=== PATIENT | female | born 1960 | race Caucasian/White ===

== ENCOUNTER 2019-05-16 11:35 | Outpatient (CLI) | payer SELFPAY ==
[2019-05-16 13:06] LABS: Absolute Basophil Count 0.01 k/cumm (0.0-0.2); Absolute Eosinophil Count 0.03 k/cumm (0.0-0.7); Absolute Lymphocyte Count 1.85 k/cumm (1.2-3.4); Absolute Monocyte Count 0.37 k/cumm (0.11-0.7); Absolute Neutrophil Count 1.81 k/cumm (1.2-6.7); Basophils % 0.2; Eosinophils % 0.7; HCT 39.5 % (36.0-46.0); HGB 13.2 g/dL (12.0-15.5); Lymphocytes % 45.5; Mean Corp. HGB Concentration 33.4 g/dL (32.0-36.0); Mean Corpuscular Hemoglobin 30.5 pg (27.0-33.0); Mean Corpuscular Volume 91.2 fL (80-95); Mean Platelet Volume 10.7 fL (8.0-11.0); Monocytes % 9.1; Neutrophils % 44.5; Platelet Count 241 x1000/uL (130-400); RBC 4.33 m/cumm (4.00-5.20); RBC Distribution Width 12.6 % (11.7-14.6); White Blood Cell Count 4.07 k/cumm (4.4-10.8)
[2019-05-16 13:24] LABS: ALT 18 U/L (14-59); AST 21 U/L (15-37); Albumin 4.2 g/dL (3.4-5.0); Alkaline Phosphatase 61 U/L (46-116); Anion Gap 8.8 mmol/L (3-11); BUN 15 mg/dL (7-18); Bilirubin, Total 1.6 mg/dL (0.2-1.0); CO2 28.2 mmol/L (21.0-32.0); CREATININE 0.81 mg/dL (0.55-1.02); Calcium 9.5 mg/dL (8.5-10.1); Chloride 104 mmol/L (98-107); Glucose 88 mg/dL (74-106); Potassium 4.1 mmol/L (3.5-5.1); Sodium 141 mmol/L (136-145); Total Protein 7.4 g/dL (6.4-8.2)
== END 2019-05-16 11:55 ==
PROVIDERS: PCP Internal Medicine; Visit Provider Internal Medicine
DX: I10 Essential (primary) hypertension (principal); R50.9 Fever, unspecified; Z01.30 Encounter for examination of blood pressure without abnormal findings
CPT/HCPCS: 36415; 80053; 84443; 85025

== ENCOUNTER 2020-02-23 20:46 | Outpatient (REF) | payer SELFPAY ==
[2020-02-23 21:00] LABS: HCT 39.9 % (36.0-46.0); HGB 13.3 g/dL (11.2-15.7); MCH 30.9 pg (27.0-33.0); MCHC 33.3 % (32.0-36.0); MCV 92.6 fL (80-95); MPV 10.6 fL (8.0-11.0); Platelet Count 258 10^3/uL (130-400); RBC 4.31 10^6/uL (3.93-5.22); RDW 12.4 % (11.7-14.6); RDW-SD 42.8 fL; WBC 4.64 10^3/uL (4.4-10.8)
[2020-02-23 21:05] LABS: CREATININE 0.87 mg/dL (0.55-1.02); Potassium 4.1 mmol/L (3.5-5.1)
== END 2020-02-23 21:06 ==
LOC: LBN 20:46
PROVIDERS: PCP Nurse Practitioner; Visit Provider Nurse Practitioner
DX: I10 Essential (primary) hypertension (principal); D72.819 Decreased white blood cell count, unspecified; B00.9 Herpesviral infection, unspecified; R51 Headache
CPT/HCPCS: 85027; 82565; 84132

== ENCOUNTER 2022-04-18 01:39 | Outpatient (CLI) | payer SELFPAY ==
--- OUTSIDE RECORDS SUMMARY | 2022-04-18 01:40 | XMS_ITS | Clinical Summary ---
:1960 Author Organization [facility] [place] [address] Care Team Providers Name Role Phone Polina Phillips Primary Care Provider Allergies No known active allergies Medications Medication Sig Dispensed Refills Start Date End Date Status lisinopril-hydrochloro Take 1 tablet by 0 Active thiazide (ZESTORETIC) mouth daily. 10-12.5 mg per tablet Immunizations Name Administration Dates Next Due Td, adult 09/12/2003 Social History Tobacco Use Types Packs/Day Years Used Date Former Smoker Sex Assigned at Date Recorded Not on file Plan of Treatment Health Maintenance Due Date Last Done Comments Covid-19 Vaccine (#1) 1960 HIV screen 1980 Hepatitis C Screening 1980 Tdap adult 1981 HPV test 1992 PAP Smear 1992 Breast Cancer Share Decision Needed 2002 Colonoscopy 2007 Breast Cancer screening 2012 Zoster vaccine (1 of 2) 2012 Tetanus vaccine 09/11/2013 09/12/2003 Advance Directive 2017 Influenza (Flu) vaccine (1 of 1 - Influenza standard 02/20/2022 series) Care Teams Snagger Relationship Specialty Start Date End Date Polina Phillips PA PCP - General 01/06/13
--- OUTSIDE RECORDS SUMMARY | 2022-04-18 01:41 | XMS_ITS | Encounter Summary ---
:1960 Author Organization [facility] Address [address] [place] [address] Care Team Providers Name Role Phone Unavailable Primary Care Provider Unavailable Encounter Details Date Type Department Care Team Description 05/26/2000 Results Only [facility] - Camelia Jones MD [address] [place] [address] Social History Tobacco Use Types Packs/Day Years Used Date Never Assessed Sex Assigned at Date Recorded Not on file documented as of this encounter Plan of Treatment Not on filedocumented as of this encounter Procedures Procedure Name Priority Date/Time Associated Diagnosis Comme nts CYTOPATHOLOGY Routine 05/26/2000 0:00 EST Result s for this procedure are i n the results section . documented in this encounter Results CYTOPATHOLOGY (05/26/2000 0:00 EST) Pathology Report: CYTOPATHOLOGY REPORT [facility] Reports generated via electronic interface contain maurisio ginal data; however they are lacking the format of the original re port. Caution should be taken when reading/interpreting unfo rmatted reports. Name: ? MART BOTLON ? Accession #: ? [id number] : ? 1960 (Age: 39) ??F ?Collect Date: ? 10/1999 Location: ? [facility] ? Receive Date : ? 06/01/2000 Provider: ?ANDRÉS TORRES MD Copy to: ? Specimen/Source: ?ThinPrep Pap Test, Source Not Provided Last Menstrual Period: ? 05/18/00 ? SPECIMEN ADEQUACY ? Satisfactory for evaluation. GENERAL CATEGORIZATION ? Within Normal Limits ? Document reviewed and electronically signed by: ? Lacey Souza, ??SCT(ASCP) ? Report Date: ??06/02/2000 07:33 End of Report Specimen Performing Organization Address City/State/ZIP Code Phon e Number [facility] [address] [place] [address] SERVICES [facility] [address] [place] [address] documented in this encounter Visit Diagnoses Not on filedocumented in this encounter
--- OUTSIDE RECORDS SUMMARY | 2022-04-18 01:41 | XMS_ITS | Encounter Summary ---
:1960 Author Organization [facility] Address [address] [place] [address] Care Team Providers Name Role Phone Unknown, Provider Primary Care Provider Encounter Details Date Type Department Care Team Description 02/04/2016 Results Only [facility]- Lizzie Epperson NP [phone] [place] [phone] Social History Tobacco Use Types Packs/Day Years Used Date Never Assessed Sex Assigned at Date Recorded Not on file documented as of this encounter Plan of Treatment Not on filedocumented as of this encounter Procedures Procedure Name Priority Date/Time Associated Diagnosis Comme nts PAP TEST- RESULT Routine 02/04/2016 0:00 EDT Resu lts for this ONLY procedure are i n the results section. documented in this encounter Results PAP TEST- RESULT ONLY (02/04/2016 0:00 EDT) Pathology Report: CYTOPATHOLOGY REPORT [facility] Reports generated via electronic interface contain maurisio ginal data; SERVICES however they are lacking the format of the original re port. Caution should be taken when reading/interpreting unfo rmatted reports. Name: ? PIETROFAHAD MAHONEY MTMELISSA ? Accession #: ? [id number] ? : ? 1960 (Age: 55) ??F ?Collect Date: ? 02/04/2016 ? Location: ? [facility] ? Receive Date: ? 02/06/20 16 ? Provider: LIZZIE PERAZA MARKET BASKET MAKER Copy to: ? Final Report SPECIMEN ADEQUACY ? Satisfactory for Evaluation - transformation zone component present GENERAL CATEGORIZATION ? Negative for Intraepithelial Lesion or Malignan cy ?? Menstrual/ Status: ??Post Menopausal Hormonal/Contraceptive status: None Other: Grain Elevator Worker Clinical/Treatment Hx - None Specimen/Source: ??Pap Test, Cervix/Endocervix, ThinPr ep Imaging System with manual evaluation Document reviewed and electronically signed by: ? Lisa Little, [place](ASCP) ? Report ??Date: 02/11/2016 13:46 HPV with Pap Test ? Date Ordered: ? 02/11/2016 ? Status: ?? Signed Out ?Date Complete: ? 02/12/2016 ? By: ??Sy stem Interface ? Date Reported: ? 02/12/2016 ? Interpretation RESULT: Negative for HPV. No E6 or E7 mRNA is detected from HPV types 16,18,31,3 3,35, 39,45,51,52,56,58,59,66, and 68 by high school science tutor media rosalinda amplification. Comments Document reviewed and electronically signed by: ? System Interface ? Report date: 02/12/2016 By the signature above, the attending physician certif ies that he/she has personally conducted a gross and/or microscopic examin ation of the described specimens and rendered or confirmed the above diagnosi s. End of Report Specimen Performing Organization Address City/State/ZIP Code Phon e Number [facility] [address] [place] [address] SERVICES documented in this encounter Visit Diagnoses Not on filedocumented in this encounter Care Teams Community Coordinator For High [employer] Relationship Specialty Start Date End Date Unknown, Provider, PCP - General 01/04/13 documented as of this encounter
--- OUTSIDE RECORDS SUMMARY | 2022-04-18 01:41 | XMS_ITS | Encounter Summary ---
:1960 Author Organization [facility] Address [address] [place] [address] Care Team Providers Name Role Phone Unavailable Primary Care Provider Unavailable Encounter Details Date Type Department Care Team Description 08/10/2006 Results Only [facility] - Cherise Stewart, conversion CNM [id number] [place] [id number] (Wo rk) Social History Tobacco Use Types Packs/Day Years Used Date Never Assessed Sex Assigned at Date Recorded Not on file documented as of this encounter Plan of Treatment Not on filedocumented as of this encounter Procedures Procedure Name Priority Date/Time Associated Comments Diagnosis HPV DETECTION, HIGH Routine 08/10/2006 13:30 Resu lts for this RISK TYPES EST procedure are i n the results section. CYTOPATHOLOGY Routine 08/10/2006 0:00 Results for this EST procedure are i n the results section. documented in this encounter Results HUMAN PAPILLOMA VIRUS DNA TEST (08/10/2006 13:30 EST) Specimen Description Cervix, ThinPrep [facility] vial Result Negative for HPV [facility] types 16, 18, 31, 33, 35, 39, 45, 51, 52, 56, 58, 59, and 68. Report Status Final [facility] [id number] Specimen Performing Organization Address City/State/ZIP Code Phon e Number [facility] [address] [place] [address] SERVICES [facility] [address] [place] [address] CYTOPATHOLOGY (08/10/2006 0:00 EST) Pathology Report: CYTOPATHOLOGY REPORT [facility] Reports generated via electronic interface contain maurisio ginal data; however they are lacking the format of the original re port. Caution should be taken when reading/interpreting unfo rmatted reports. Name: ? MART BOLTON ? Accession #: ? [id number] : ? 1960 (Age: 46) ??F ?Collect Date: ? 07/23 Location: ? [facility] ? Receive Date : ? 08/13/2006 Provider: ?CHERISE MURO [facility] Copy to: ? Specimen/Source: ? ThinPrep Pap Test, Cervix/Endocervix, processed on [employer] ThinPrep Imaging System, with manual evaluation Last Menstrual Period: ? Other: ? HPVDX - HPV testing requested regardless of diag nosis on current ThinPrep Pap test. Additional clinical information: Previous pap WNL ? SPECIMEN ADEQUACY ? Satisfactory for Evaluation - transformation zone component present GENERAL CATEGORIZATION ? Negative for Intraepithelial Lesion or Malignan cy ? Document reviewed and electronically signed by: ? KATEY Arrington(ASCP) ? Report Date: ??08/17/2006 08:37 End of Report Specimen Performing Organization Address City/State/ZIP Code Phon e Number [facility] [address] [place] [address] SERVICES [facility] [address] [place] [address] documented in this encounter Visit Diagnoses Not on filedocumented in this encounter
--- OUTSIDE RECORDS SUMMARY | 2022-04-18 01:41 | XMS_ITS | Encounter Summary ---
:1960 Author Organization [facility] Address [address] [place] [address] Care Team Providers Name Role Phone Unknown, Provider Primary Care Provider Encounter Details Date Type Department Care Team Description 01/03/2013 Results Only [facility] Kristin Phillips am, [facility] Services - [address] [address] Social History Tobacco Use Types Packs/Day Years Used Date Never Assessed Sex Assigned at Date Recorded Not on file documented as of this encounter Plan of Treatment Not on filedocumented as of this encounter Procedures Procedure Name Priority Date/Time Associated Diagnosis Comme nts PAP TEST- RESULT Routine 01/03/2013 0:00 EDT Resu lts for this ONLY procedure are i n the results section. documented in this encounter Results PAP TEST- RESULT ONLY (01/03/2013 0:00 EDT) Pathology Report: CYTOPATHOLOGY REPORT [facility] Reports generated via electronic interface contain maurisio ginal data; however they are lacking the format of the original re port. Caution should be taken when reading/interpreting unfo rmatted reports. Name: ? FAHAD BOLTON ? Accession #: ? [id number] ? : ? 1960 (Age: 52) ??F ?Collect Da te: ? 01/03/2013 ? Location: ? [facility] ? Receive Date: ? 013 ? Provider: GLORIA NEUMANN Copy to: ? Final Report SPECIMEN ADEQUACY ? Satisfactory for Evaluation - transformation zone component present GENERAL CATEGORIZATION ? Negative for Intraepithelial Lesion or Malignan cy ?? Menstrual/ Status: ??Post Menopausal Specimen/Source: ??Pap Test, Cervix/Endocervix, ThinPr ep Imaging System with manual evaluation Document reviewed and electronically signed by: ? Jak Juarez, CT(ASCP) ? Report ??Date: 01/07/2013 13:32 HPV with Pap Test ? Date Ordered: ? 01/07/2013 ? Status: ?? Signed Out ?Date Complete: ? 01/11/2013 ? By: ??S ystem Interface ? Date Reported: ? 01/11/2013 ? Interpretation RESULT: Negative for HPV. No E6 or E7 mRNA is detected from HPV types 16,18,31,3 3,35, 39,45,51,52,56,58,59,66, and 68 by paint dipper media rosalinda amplification. Comments Document reviewed and electronically signed by: ? System Interface ? Report date: 01/11/2013 By the signature above, the attending physician certif ies that he/she has personally conducted a gross and/or microscopic examin ation of the described specimens and rendered or confirmed the above diagnosi s. End of Report Specimen Performing Organization Address City/State/ZIP Code Phon e Number [facility] [address] [place] [address] SERVICES [facility] [address] [place] [address] documented in this encounter Visit Diagnoses Not on filedocumented in this encounter Care Teams Assistant Chief Train Dispatcher Relationship Specialty Start Date End Date Unknown, Provider, PCP - General 01/04/13 documented as of this encounter
--- OUTSIDE RECORDS SUMMARY | 2022-04-18 01:41 | XMS_ITS | Encounter Summary ---
:1960 Author Organization [facility] [place] [address] Care Team Providers Name Role Phone Polina Phillips Primary Care Provider Reason for Visit Reason Comments Skin Lesion Encounter Details Date Type Department Care Team Description 07/18/2013 [facility]us ([address] [facility] Dx) [address] [place] [address] [facility] [phone] [address]-DERMATOLOGY [place] [id number] (Wo rk) Social History Tobacco Use Types Packs/Day Years Used Date Former Smoker Sex Assigned at Date Recorded Not on file documented as of this encounter Progress Notes Shruthi Green MD - 07/18/2013 1:01 PM EST Images from the original note were not included. DERMATOLOGY SPOT-CHECK Date of service: 07/18/2013 Alicia Stewart : 1960 Provider: Shruthi Green MD PROBLEM: Spot to check Chief Complaint Patient presents with ??? Skin Lesion The patient is seen at the request of Polina Phillips, who instructed the patient to be seen for evaluation of above SKIN HX: Denies any dermatological issues HPI Alicia Stewart is a 53 y.o. year old female; new patient; here today with her for evaluation of a mole on her left lower back (SI area). Patient states that during her yearly exam last year, her PCP suggested she get it examined. Ms. Stewart denies any itching or bleeding from the area and states that she was unaware it was even there. Both she and her are unsure whether or not the mole has changed or how long it has been there. - Seen for one spot-check at this apointment. Knows this is a one-spot check clinic only. Knows willneed to make appointment for full skin check if desired or to have other areas checked. ADR: No Known Allergies MEDS: Current Outpatient Prescriptions Medication Sig Dispense Refill ??? lisinopril-hydrochlorothiazide (ZESTORETIC) 10-12.5 mg per tablet Take 1 tablet by mouth daily. ??? [DISCONTINUED] lisinopril (PRINIVIL;ZESTRIL) 10 mg tablet 10mg, PO, Once daily ROS General: feeling well EXAM A focused skin exam of the concerning spot was performed. General: NAD, pleasant, cooperative Focused exam of skin: patient's back Skin findings: A. 0.7 x 0.4 cm slightly irregularly shaped and irregularly pigmented brown patch on the left posterior hip Melafind Readings: High, 1.6 Disorganization B. Similar lesion, superior to lesion A The above photos were taken with patient's verbal permission ASSESSMENT/PLAN: A-B. Slightly Atypical Appearing Nevus left lower back - Treatment options discussed with patient such as following clinically, diagnostic biopsy today, oruse of a Melafind (with a cost of $25.00) for more information - Each of these treatments were discussed in depth with patient - Patient would like to try the Melafind (high disorganization 1.6) as well as clinically following up in 6 months. - Based on the Melafind readings and it reading relatively low, decision was made to follow up in 6 months -Cost Paid Today: $25.00 RTC: 6 months for follow up lesion A. Patient will make this appointment on her way out today. I am documenting this encounter acting as the scribe for and in the presence of Dr. Green.: MATILDA JONES LPN I performed the above scribed service and agree with the accuracy of the documentation in this encounter. Shruthi Green MD Section of Dermatology [facility] cc: Polina Phillips documented in this encounter Plan of Treatment Not on filedocumented as of this encounter Visit Diagnoses Diagnosis Benign nevus - Primary Benign neoplasm of skin, site unspecifie d documented in this encounter Care Teams Application Support Developer Relationship Specialty Start Date End Date Polina Phillips PA PCP - General 01/06/13 documented as of this encounter
--- OUTSIDE RECORDS SUMMARY | 2022-04-18 01:41 | XMS_ITS | Encounter Summary ---
:1960 Author Organization [facility] Address [address] [place] [address] Care Team Providers Name Role Phone Unavailable Primary Care Provider Unavailable Encounter Details Date Type Department Care Team Description 12/03/2009 Results Only [facility] Kristin Phillips am, PA Services - Ashwini All [address] [address] Social History Tobacco Use Types Packs/Day Years Used Date Never Assessed Sex Assigned at Date Recorded Not on file documented as of this encounter Plan of Treatment Not on filedocumented as of this encounter Procedures Procedure Name Priority Date/Time Associated Comments Diagnosis HPV DETECTION, HIGH Routine 12/03/2009 10:28 Resu lts for this RISK TYPES EDT procedure are i n the results section. CYTOPATHOLOGY Routine 12/03/2009 0:00 Results for this EDT procedure are i n the results section. documented in this encounter Results HUMAN PAPILLOMA VIRUS DNA TEST (12/03/2009 10:28 EDT) Specimen Description Cervix, ThinPrep [facility] vial Result Negative for HPV [facility] types 16, 18, 31, 33, 35, 39, 45, 51, 52, 56, 58, 59, and 68. Report Status Final [facility] 12/12/2009 Specimen Performing Organization Address City/State/ZIP Code Phon e Number [facility] [address] [place] [address] SERVICES [facility] [address] [place] [address] CYTOPATHOLOGY (12/03/2009 0:00 EDT) Pathology Report: CYTOPATHOLOGY REPORT ? [facility] ? [facility] Reports generated via electr onic interface contain original data; ? however they are lacking the format of the original report. ? Caution should be taken when reading/interpreting unformatted reports. ? Name: ? FAHAD BOLTON ? Accession #: ? [id number] ? : ? 1960 (Age: 49) ??F ?Collect Date: ? 12/03/2009 ? Location: ? [facility] ? Receive Date: ? 12/04/2009 ? Provider: ?GLORIA SIM ON PA ? Copy to: ? Specimen/Source: ? Pap Test, Cervix/Endocervix, ThinPrep Imaging System ? with manual evaluation ? Last Menstrual Period: ? Menstrual/ Status: ? Post Menopausal ? Other: ? HPVDX - HPV testing requeste d regardless of diagnosis on current ThinPrep Pap ?? test. ? SPECIMEN ADEQUACY ? Satisfactory for Eval uation ? - transformation zone compon ent present ? GENERAL CATEGORIZATION ? Negative for Intraepi thelial Lesion or Malignancy ? INTERPRETATION ? Shift in manuel presen t suggestive of bacterial vaginosis. ? Document reviewed and electr onically signed by: ? Jak Juarez, CT (ASCP) ? Report Date: ??06/18/ 2010 10:59 ? End of Report ? Specimen Performing Organization Address City/State/ZIP Code Phon e Number [facility] [address] [place] [address] SERVICES [facility] [address] [place] [address] documented in this encounter Visit Diagnoses Not on filedocumented in this encounter
[2022-04-18 12:46] LABS: HCT 38.6 % (36.0-46.0); HGB 12.9 g/dL (11.2-15.7); MCH 30.9 pg (27.0-33.0); MCHC 33.4 % (32.0-36.0); MCV 92 fL (80-95); MPV 10.5 fL (8.0-11.0); Platelet Count 221 10^3/uL (130-400); RBC 4.18 10^6/uL (3.93-5.22); RDW-SD 40.4 fL; WBC 3.55 10^3/uL (4.4-10.8)
[2022-04-18 13:05] LABS: ALT 20 U/L (14-59); AST 22 U/L (15-37); Alkaline Phosphatase 55 U/L (46-116); Anion Gap 6.8 mmol/L (3-11); BUN 14 mg/dL (7-18); Bilirubin, Total 1.5 mg/dL (0.2-1.0); CO2 29.2 mmol/L (21.0-32.0); CREATININE 0.8 mg/dL (0.55-1.02); Calcium 9.2 mg/dL (8.5-10.1); Calculated LDL 84 mg/dL (<100); Chloride 102 mmol/L (98-107); Cholesterol 185 mg/dL (<200); Estimated GFR 84.82 (mL/min/1.73m2); Glucose 87 mg/dL (74-106); HDL Cholesterol 90 mg/dL (40-60); Potassium 3.7 mmol/L (3.5-5.1); Sodium 138 mmol/L (136-145); TSH (W/Ref FT4) 1.92 uIU/mL (0.36-3.74); Total Protein 7.4 g/dL (6.4-8.2); Triglyceride 55 mg/dL (<150)
[2022-04-21 10:54] LABS: Hepatitis C Ab w Rflx HCV PCR Negative (Negative)
== END 2022-04-18 01:40 | disposition home or self-care (01) ==
LOC: LOS 01:40
PROVIDERS: PCP Nurse Practitioner Family; Visit Provider Family Medicine
DX: E80.4 Gilbert syndrome (principal); I10 Essential (primary) hypertension; I73.00 Raynaud's syndrome without gangrene; Z11.59 Encounter for screening for other viral diseases
CPT/HCPCS: 36415; 80053; 80061; 85027; 86803; 84443

== ENCOUNTER 2023-06-05 10:24 | Outpatient (CLI) | payer SELFPAY ==
[2023-06-05 12:56] LABS: CREATININE 0.8 mg/dL (0.55-1.02)
== END 2023-06-05 10:25 | disposition home or self-care (01) ==
LOC: LOS 10:24
PROVIDERS: PCP Nurse Practitioner Family; Referring Provider Nurse Practitioner Family; Visit Provider Nurse Practitioner Family
DX: I10 Essential (primary) hypertension (principal)
CPT/HCPCS: 36415; 82565

== ENCOUNTER 2024-06-24 16:28 | Outpatient (REF) | payer SELFPAY ==
[2024-06-10 13:30] LABS: CREATININE 0.9 mg/dL (0.55-1.02); Estimated GFR 72.73 (mL/min/1.73m2)
== END 2024-06-24 16:29 | disposition home or self-care (01) ==
LOC: LBN 16:28
PROVIDERS: PCP Nurse Practitioner Family; Visit Provider Nurse Practitioner Family
DX: I10 Essential (primary) hypertension (principal); Z23 Encounter for immunization; Z12.39 Encounter for other screening for malignant neoplasm of breast; Z00.00 Encounter for general adult medical examination without abnormal findings
CPT/HCPCS: 82565

== ENCOUNTER 2024-07-11 01:22 | Outpatient (CLI) | payer SELFPAY | END 2024-07-11 01:42 | LOC: DI 01:22 | PROVIDERS: PCP Nurse Practitioner Family; Visit Provider Nurse Practitioner Family | DX: Z12.31 Encounter for screening mammogram for malignant neoplasm of breast (principal); R92.323 Mammographic fibroglandular density, bilateral breasts | CPT/HCPCS: 77063; 77067 ==

== ENCOUNTER 2025-06-02 11:28 | Outpatient (CLI) | payer SELFPAY | END 2025-06-02 11:29 | disposition home or self-care (01) | LOC: LOS 11:28 | PROVIDERS: PCP Nurse Practitioner Family; Visit Provider Nurse Practitioner Family | DX: I10 Essential (primary) hypertension (principal) | CPT/HCPCS: 36415; 82565 ==